=== PATIENT | female | born 1970 | race Two or more races ===

== ENCOUNTER → 2020-02-10 08:00 | Outpatient (CLI) | payer OTHER ==
[~2020-02-10 08:00] MED LIST: AMILODIPINE PO; COZAAR100 MG PO; FLUCONASE; FLUTICASONE; REVLIMID25 MG PO; SYMBIC; [UNRECOGNIZED DRUG - OTHER] PO
== END | disposition home or self-care (01) ==
LOC: LAB 08:00 → ADM 10:45 → CIR.AMB 02-17 10:45 → EDSTATUS 02-17 10:45 → CIR.AMB 02-17 11:45
PROVIDERS: ATTEND Colon & Rectal Surgery
DX: U07.1 COVID-19 (principal); D12.8 Benign neoplasm of rectum; Z86.010 Personal history of colon polyps; K64.2 Third degree hemorrhoids; Z01.812 Encounter for preprocedural laboratory examination

== ENCOUNTER 2020-02-18 09:12 | Outpatient (CLI) | payer OTHER ==
[~2020-02-18 09:12] MED LIST changes: -FLUCONASE; -[UNRECOGNIZED DRUG - OTHER] PO
== END 2020-02-18 09:21 | disposition home or self-care (01) ==
LOC: LAB 09:12
PROVIDERS: ATTEND Internal Medicine Geriatric Medicine
DX: D64.89 Other specified anemias (principal); E26.09 Other primary hyperaldosteronism; E87.6 Hypokalemia

== ENCOUNTER 2020-02-23 08:42 | Outpatient (CLI) | payer OTHER | END 2020-02-23 08:49 | disposition home or self-care (01) | LOC: LAB 08:42 | PROVIDERS: ATTEND Internal Medicine Geriatric Medicine | DX: E87.6 Hypokalemia (principal) ==

== ENCOUNTER 2020-03-30 08:54 | Day surgery (SDC) | payer OTHER ==
[~2020-03-30 08:54] MED LIST changes: +FLUCONASE; +[UNRECOGNIZED DRUG - OTHER] PO
== END 2020-03-30 17:40 | disposition home or self-care (01) ==
LOC: CIR.AMB 08:54
PROVIDERS: ATTEND Colon & Rectal Surgery
DX: K62.0 Anal polyp (principal); K64.4 Residual hemorrhoidal skin tags; Z20.828 Contact with and (suspected) exposure to other viral communicable diseases